=== PATIENT | female | born 1955 | race Hispanic/Latino ===

== ENCOUNTER 2024-08-28 00:12 | Emergency (ER) | payer MEDICARE ==
[~2024-08-28] VITALS: Ht 162.6 cm; Wt 87.5 kg
[~2024-08-28 00:12] MED LIST: ANTIVERT25 M1 PO; CEFDINIR300 MG PO
[2024-08-28 00:31] VITALS: PULSE 95; RESP 18; TEMP 97.9; O2SAT 100
[2024-08-28] MEDS: ONDANSETRON HCL 4 MG ORAL DISINTEGRATING TAB PO ONE (00:57)
[2024-08-28] MEDS ORDERED: MACROBID 100 M100 MG PO (01:03)
[2024-08-28] MEDS ORDERED: ONDANSETRON ODT4 MG PO (01:03)
== END 2024-08-28 01:15 | disposition home or self-care (01) ==
LOC: ER 00:17
DX: R11.2 Nausea with vomiting, unspecified (principal); T36.1X5A Adverse effect of cephalosporins and other beta-lactam antibiotics, initial encounter; N39.0 Urinary tract infection, site not specified; I10 Essential (primary) hypertension; E11.9 Type 2 diabetes mellitus without complications; E78.5 Hyperlipidemia, unspecified
CPT/HCPCS: 99282; Q0162